=== PATIENT | male | born 1970 | race Caucasian/White ===

== ENCOUNTER → 2023-07-29 11:10 | Outpatient (BNVA) | payer OTHER, SELFPAY | PROVIDERS: Family Provider Family Medicine; PCP Family Medicine; Visit Provider Family Medicine | DX: I10 Essential (primary) hypertension (principal); E78.00 Pure hypercholesterolemia, unspecified; Z00.00 Encounter for general adult medical examination without abnormal findings | CPT/HCPCS: 80053; 80061; 85025 ==

== ENCOUNTER 2024-06-16 21:34 | Observation (INO) | payer OTHER, SELFPAY ==
--- NOTE | 2024-06-16 21:34 | ECG_ITS ---
[facility] Test Date: 2024-06-16 Pat Name: Baltazar Hahn Department: Room: Gender: Male Network Systems Integrator: : 1970 Requested By: Josselin Green Order Number: [id number] Shantel MD: Marquis Holley M.D. Measurements Intervals [place] Rate: 63 P: 0 [place]: 148 QRS: 6 QRSD: 86 T: 30 QT: 377 QTc: 389 Interpretive Statements SINUS RHYTHM No previous ECG available for comparison Electronically Signed On 06-16-2024 22:58:43 CDT by Marquis Holley M.D. [id number]
[2024-06-16 21:37] VITALS: BP 167/92; PULSE 63; RESP 16; TEMP 36.8; O2SAT 97; BMI 34.4
--- NOTE | 2024-06-16 21:51 | XRR_ITS ---
PROCEDURE INFORMATION: Exam: XR Chest Exam date and time: 06/16/2024 10:12 PM Age: 54 years old Clinical indication: Pain; Chest pressure; Additional info: Chest pain TECHNIQUE: Imaging protocol: Radiologic exam of the chest. Views: 1 view. COMPARISON: No relevant prior studies available. FINDINGS: Lungs: Reticular opacities in the left lower lung zone that might represent atelectasis versus infiltrates. No right lung consolidation. Pleural spaces: Unremarkable. No pleural effusion. No pneumothorax. Heart/Mediastinum: Unremarkable. No cardiomegaly. Vasculature: Unfolding of the thoracic aorta. Bones/joints: Moderate degenerative of the left acromioclavicular joint. Mild degenerative disease of the left glenohumeral joint. XR/XR chest 1V portable [id number] IMPRESSION: Reticular opacities in the left lower lung zone that might represent atelectasis versus infiltrates.
[2024-06-16 22:10] LABS: Basophils % 0.5 %; Eosinophils # 0.2 10^3/uL (0.0-0.8); Eosinophils % 2.3 %; Hematocrit 44.6 % (37-53); Lymphocytes # 2.9 10^3/uL (0.8-4.8); Lymphocytes % 33.8 %; Mean Corpuscular HGB Conc 33.6 g/dL (30-55); Mean Corpuscular Hemoglobin 31.3 pg (27-33); Mean Corpuscular Volume 93.1 fl (82-101); Mean Platelet Volume 8.5 fL (7.4-10.4); Monocytes # 1.1 10^3/uL (0.2-0.9); Monocytes % 12.6 %; Neutrophils # 4.37 10^3/uL (1.8-7.7); Neutrophils % 50.5 %; Nucleated Red Blood Cells % 0 %; Platelet Count 259 10^3/cmm (157-399); Red Blood Count 4.79 10^6/uL (3.85-5.65); Red Cell Distribution Width 12.1 % (12.1-15.1); White Blood Count 8.66 10^3/uL (3.29-11.43)
--- NOTE | 2024-06-16 22:19 | ED_ITS ---
HPI - Chest Pain 2 General: Chief Complaint: Chest Pain Stated Complaint: CP Time Seen by Provider: 06/16/24 21:37 History of Present Illness: 54-year-old male with history of hyperte nsion presents emergency room with chest pain. This started about 30 minutes ago. Left chest. Intermittent intensity. Pressure and ache. No known cardiac history. No cough. No diaphoresis. No nausea or vomiting. No abdominal pain. No altered mental status. No fevers. Related Data Previous Rx's Medication Instructions Recorded lisinopril 20 mg tablet 20 mg PO BID #180 tabs 07/29/23 Allergies Allergy/AdvReac Type Severity Reaction Status Date / Time No Known Allergies Allergy Verified 07/29/23 09:26 Review of Systems 2 Narrative: Constitutional symptoms: Negative except as documented in HPI. Skin symptoms: Negative except as documented in HPI. Eye symptoms: Negative except as documented in HPI. ENMT symptoms: Negative except as documented in HPI. Respiratory symptoms: Negative except as documented in HPI. Cardiovascular symptoms: Negative except as documented in HPI. Gastrointestinal symptoms: Negative except as documented in HPI. Genitourinary symptoms: Negative except as documented in HPI. Musculoskeletal symptoms: Negative except as documented in HPI. Neurologic symptoms: Negative except as documented in HPI. Psychiatric symptoms: Negative except as documented in HPI. Endocrine symptoms: Negative except as documented in HPI. PFSH ED 2 PFSH: Medical History (Updated 06/17/24 @ 01:02 by Josselin Galarza MD) Hypercholesterolemia Hypertension Social History Smoking and tobacco/nicotine status: never used tobacco/nicotine Alcohol intake: never Substance/Drug Use: never Physical Exam 2 Narrative: EXAM NARRATIVE: General: Alert, no acute distress. Skin: Warm, dry. Head: Normocephalic, atraumatic. Neck: Supple, trachea midline. Eye: Extraocular movements are intact. Ears, nose, mouth and throat: mucosa moist. Cardiovascular: Regular, Normal peripheral perfusion. Respiratory: Lungs are clear to auscultation, respirations are non-labored, breath sounds are equal, Symmetrical chest wall expansion. Gastrointestinal: Soft, Nontender, Non distended Musculoskeletal: Normal ROM, no deformity. Neurological: Alert and oriented, No focal neurological deficit observed. Psychiatric: Cooperative, appropriate mood & affect. Course 2 Vital Signs: Vital signs: Vital Signs Temperature 98.6 F 06/16/24 22:26 Pulse Rate 76 06/17/24 00:00 Respiratory Rate 16 06/17/24 00:00 Blood Pressure 110/70 06/17/24 00:00 Pulse Oximetry 98 06/17/24 00:00 Oxygen Delivery Me thod Room Air 06/16/24 23:43 MDM - Chest Pain Medical Decision Making Differential diagnosis for patient with chest pain includes but is not limited to and based on the above HPI, review of systems and physical exam: Pneumonia. unstable angina. angina. Acute coronary syndrome / MO. Pulmonary embolism. Costochondritis / musculoskeletal. Pleurisy. Pericarditis. Esophageal spasm. Pancreatis. Cholecystitis. Orders placed to evaluate differential diagnosis based on the above differential, HPI and physical exam EKG: Time 2133. Rate 63. Normal sinus rhythm, No ST-T changes, no ectopy, normal NV & QRS intervals, This was reviewed and interpreted by myself the ER physician at 2135 Chest x-ray: Some possible atelectasis versus infiltrate. No infiltrate. No pneumothorax. This was reviewed and interpreted by myself the ER physician. CT of the chest without contrast: This done because of abnormal chest x-ray. There is a mild effusion and some atelectasis. This was reviewed and interpreted by myself the emergency room physician. I also reviewed the radiology report. Lab Review: Laboratory results were reviewed and interpreted by myself the emergency room physician. No leukocytosis. No anemia. No renal failure. BUN and creatinine are 17 and 0.8. Serial cardiac markers are basically negative but has mildly increased. HEART Pathway for Early Discharge in Acute Chest Pain from [facility] on 06/17/2024 All calculations should be rechecked by clinician prior to use RESULT SUMMARY: 4 points HEART Pathway Score High risk 12-65% 30-day MACE Admit to hospital or observation. Further testing indicated. INPUTS: History ?> 2 = Highly suspicious EKG ?> 0 = Normal Age ?> 1 = 45-64 Risk factors ?> 1 = 1-2 risk factors Initial troponin ?> 0 = <=ormal limit I reviewed the patient's medical record. Reexamination: Patient remained stable. No increased work of breathing. No altered mental status. No focal motor deficits. Still with some mild chest pain. It did improve with nitroglycerin. Consultation: I spoke with Dr. Amanda who is on-call for the hospitalist. He agrees to admission to observation. Assessment and plan: Chest pain Hypertension ?Chest pain improved with nitro. Aspirin was also given. -I discussed the patient with the hospitalist on-call who is admitting the patient. - Discussed findings and plan with patient. Answered any questions. - All laboratory values were reviewed and interpreted personally by myself, the ER physician - All imaging was reviewed and interpreted personally by myself, the ER physician. - Evaluation and treatment of this problem were appropriate in the emergency setting Lab Data 06/16/24 21:59 06/16/24 21:59 Radiology Impressions Chest X-Ray 06/16/24 21:51 IMPRESSION: Reticular opacities in the left lower lung zone that might represent atelectasis versus infiltrates. Chest CT 06/16/24 23:46 IMPRESSION: Small left pleural effusion with bilateral lower lobe and lingular atelectasis. Laboratory Results WBC 8.66 10^3/uL (3.29-11.43) 06/16/24 21:59 RBC 4.79 10^6/uL (3.85-5.65) 06/16/24 21:59 Hgb 15.00 g/dL (11.27-16.99) 06/16/24 21:59 Hct 44.6 % (37-53) 06/16/24 21:59 MCV 93.1 fl (82-101) 06/16/24 21:59 MCH 31.3 pg (27-33) 06/16/24 21:59 MCHC 33.6 g/dL (30-55) 06/16/24 21:59 RDW 12.1 % (12.1-15.1) 06/16/24 21:59 Plt Count 259 10^3/cmm (157-399) 06/16/24 21:59 MPV 8.5 fL (7.4-10.4) 06/16/24 21:59 Neut % (Auto) 50.5 % 06/16/24 21:59 Lymph % (Auto) 33.8 % 06/16/24 21:59 [place] % (Auto) 12.6 % 06/16/24 21:59 Eos % (Auto) 2.3 % 06/16/24 21:59 Baso % (Auto) 0.5 % 06/16/24 21:59 Neut # (Auto) 4.37 10^3/uL (1.8-7.7) 06/16/24 21:59 Lymph # (Auto) 2.9 10^3/uL (0.8-4.8) 06/16/24 21:59 [place] # (Auto) 1.1 10^3/uL (0.2-0.9) H 06/16/24 21:59 Eos # (Auto) 0.2 10^3/uL (0.0-0.8) 06/16/24 21:59 Baso # (Auto) 0.0 10^3/uL (0.0-0.1) 06/16/24 21:59 Nucleated RBC % (auto) 0 % 06/16/24 21:59 Nucleated RBCs # 0.0 /100WBC 06/16/24 21:59 Sodium 137 mmol/L (136-145) 06/16/24 21:59 Potassium 4.2 mmol/L (3.5-5.1) 06/16/24 21:59 Chloride 100 mmol/L (98-107) 06/16/24 21:59 Carbon Dioxide 24 mmol/L (22-29) 06/16/24 21:59 Anion Gap 17.2 (5-19) 06/16/24 21:59 BUN 17 mg/dL (6-20) 06/16/24 21:59 Creatinine 0.8 mg/dL (0.7-1.2) 06/16/24 21:59 GFR Calculation 100.0 mL/min (90-130) 06/16/24 21:59 Glucose 93 mg/dL (65-115) 06/16/24 21:59 Calculated Osmolality 285 mOsm/kg (285-295) 06/16/24 21:59 Calcium 9.2 mg/dL (8.5-10.5) 06/16/24 21:59 Total Bilirubin 0.4 mg/dL (0.15-1.2) 06/16/24 21:59 AST 17 U/L (0-40) 06/16/24 21:59 ALT 15 U/L (0-41) 06/16/24 21:59 Alkaline Phosphatase 98 U/L (40-130) 06/16/24 21:59 Troponin T Baseline 10 ng/L (0-15) 06/16/24 21:59 Troponin T 120 Minute 12.47 ng/L (0-15) 06/17/24 00:07 Delta Troponin T 2.47 ABS# (0-10) 06/17/24 00:07 Total Protein 7.5 g/dL (6.6-8.7) 06/16/24 21:59 Albumin 4.7 g/dL (3.5-5.2) 06/16/24 21:59 Globulin 2.8 g/dL (1.3-4.6) 06/16/24 21:59 All radiology interpretation(s) finalized by discharge Discharge Plan Discharge Patient Disposition: Placed in Observation Clinical Impression: Chest pain Hypertension Qualifiers: Hypertension type: essential hypertension Qualified Code(s): I10 - Essential (primary) hypertension Coding Level of Care Code ED Bunch Breaker for Ira Duenas
[2024-06-16 22:26] VITALS: PULSE 78; RESP 16; TEMP 37; O2SAT 98
[2024-06-16 22:28] LABS: Troponin(5th) Baseline 10 ng/L (0-15)
[2024-06-16 22:29] LABS: Alanine Aminotransferase 15 U/L (0-41); Albumin Level 4.7 g/dL (3.5-5.2); Alkaline Phosphatase 98 U/L (40-130); Anion Gap 17.2 (5-19); Aspartate Amino Transferase 17 U/L (0-40); Blood Urea Nitrogen 17 mg/dL (6-20); Calcium 9.2 mg/dL (8.5-10.5); Carbon Dioxide 24 mmol/L (22-29); Chloride 100 mmol/L (98-107); Creatinine Clr Calc Pharmacy 142.8368; Globulin 2.8 g/dL (1.3-4.6); Glucose 93 mg/dL (65-115); Osmolality Calculated 285 mOsm/kg (285-295); Potassium 4.2 mmol/L (3.5-5.1); Sodium 137 mmol/L (136-145); Total Bilirubin 0.4 mg/dL (0.15-1.2); Total Protein 7.5 g/dL (6.6-8.7)
[2024-06-16] MEDS: aspirin 81 mg Chew Tablet 324 MG PO (22:56)
[2024-06-16] MEDS: nitroglycerin 0.4 mg sublingual Tablet SUBLINGUAL ×3 (22:57→23:30)
[2024-06-16 22:59] VITALS: BP 149/91; PULSE 79; RESP 17; O2SAT 96
[2024-06-16 23:43] VITALS: BP 126/72; PULSE 66; RESP 16; O2SAT 95
[2024-06-16 23:45] VITALS: BP 134/78; PULSE 69
--- NOTE | 2024-06-16 23:46 | CTR_ITS ---
PROCEDURE INFORMATION: Exam: CT Chest Without Contrast; Diagnostic Exam date and time: 06/16/2024 11:51 PM Age: 54 years old Clinical indication: Pain; Chest pressure; Additional info: Abnormal chest xray TECHNIQUE: Imaging protocol: Diagnostic computed tomography of the chest without contrast. Radiation optimization: All CT scans at this facility use at least one of these dose optimization techniques: automated exposure control; mA and/or kV adjustment per patient size (includes targeted exams where dose is matched to clinical indication); or iterative reconstruction. COMPARISON: CR XR chest 1V portable [id number] 06/16/2024 10:12 PM RADIATION DOSE METRICS: Total DLP (mGy-cm): 716.41 FINDINGS: Lungs: Atelectatic changes in bilateral lower lobes and lingula. No focal consolidation. Pleural spaces: Small left pleural effusion. No right pleural effusion. Heart: Unremarkable. No cardiomegaly. No pericardial effusion. Coronary arteries: Mild coronary calcifications. Lymph nodes: Calcified left hilar lymph nodes. Vasculature: Aortic calcifications. Bones/joints: Unremarkable. No acute fracture. Soft tissues: Unremarkable. CT/CT chest con [id number] IMPRESSION: Small left pleural effusion with bilateral lower lobe and lingular atelectasis.
--- NOTE | 2024-06-16 23:51 | ECG_ITS ---
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 Measurements Intervals [place] Rate: 63 P: 8 [place]: 149 QRS: -1 QRSD: 86 T: 29 QT: 407 QTc: 418 Interpretive Statements SINUS RHYTHM WITH OCCASIONAL VENTRICULAR PREMATURE COMPLEXES Compared to ECG 06/16/2024 21:34:56 Ventricular premature complex(es) now present Electronically Signed On 06-17-2024 16:38:42 CDT by Antwon Jovel M.D. [id number]
[2024-06-17] VITALS (27 sets, daily range): BP systolic 110–164; BP diastolic 64–93; PULSE 60–106; RESP 15–21; TEMP 36.6–36.7; O2SAT 93–100; BMI 34.4
--- NOTE | 2024-06-17 | ECG_ITS ---
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 Interpretive Statements Lung unchanged pre/post procedure; Intraprocedure shortess of breath; Symptoms resoled by discharge Electronically Signed On 06-20-2024 20:50:43 CDT by Marquis Holley M.D. [id number]
[2024-06-17 00:37] LABS: Troponin 5 2HR 12.47 ng/L (0-15); Troponin 5 2HR Delta 2.47 ABS# (0-10)
--- NOTE | 2024-06-17 01:36 | P.HP_ITS ---
Providers/Chief Complaint 2 Primary Care Provider: Miguel Santos MD Chief Complaint: CP History of Present Illness Pleasant 54-year-old gentleman with history of HTN, HLD, overweight, came to ER for evaluation due to left-sided chest pain starting and lasting about 30 minutes prior to presentation with relief from nitroglycerin but still mild dull ache residual. 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 Current episode was on the left side of the chest, severe, sharp, without radiation. Made it difficult for him to take deep breaths, although not specifically triggered by breathing. Not triggered by palpation or movement. He has not had any cough or shortness of breath otherwise. No exertional dyspnea. No orthopnea or lower extremity edema. Review of Systems 2 Const: Denies: fever(s), chills, body aches or malaise ENMT: Denies: throat pain Card: Reports: chest pain; Denies: edema, pre-syncope or dyspnea on exertion Resp: Denies: dyspnea, productive cough, change in phlegm color or hemoptysis GI: Denies: abdominal pain, nausea, vomiting, diarrhea, constipation, hematochezia or melena : Denies: flank pain, difficulty urinating, urinary frequency or hematuria Musc: Denies: back pain, joint swelling or joint redness Skin/Breast: Denies: rash or new lesions Neuro: Denies: headache(s) or confusion Medications/Allergies Home Medications Medication Instructions Recorded Confirmed Last Taken Type lisinopril 20 mg tablet 20 mg PO BID #180 tabs 07/29/23 07/29/23 Unknown Rx Allergies Allergy/AdvReac Type Severity Reaction Status Date / Time No Known Allergies Allergy Verified 07/29/23 09:26 PFSH Acute 2 PFSH: Medical History (Updated 06/17/24 @ 01:46 by Linwood Amanda MD) History of umbilical hernia Hypercholesterolemia Hypertension Surgical History (Updated 06/17/24 @ 01:46 by Linwood Amanda MD) History of sinus surgery Social History Smoking and tobacco/nicotine status: never used tobacco/nicotine Alcohol intake: never Substance/Drug Use: never Vitals/I&O/Wt Last Vital Signs Temp 98.6 F 06/16/24 22:26 Pulse 76 06/17/24 00:00 Resp 16 06/17/24 00:00 BP 110/70 06/17/24 00:00 Pulse Ox 98 06/17/24 00:00 O2 Del Method Room Air 06/16/24 23:43 Weight last 48 hrs Weight 121.563 kg Physical Exam 2 Const: COMMON NORMALS: patient oriented x3 and alert GENERAL APPEARANCE: c ooperative ORIENTATION/CONSCIOUSNESS: Yes awake HENMT: COMMON NORMALS: oropharynx normal Neck/C-Spine: COMMON NORMALS: no JVD Chest: OTHER: No reproducible pain on palpation Resp: COMMON NORMALS: normal respiratory effort and clear to auscultation bilaterally AUSCULTATION: clear to auscultation bilaterally Cardio: COMMON NORMALS: no JVD, regular rhythm, S1 normal heart sound present, S2 normal heart sound present and No murmurs present (Cardio) RHYTHM: regular rhythm HEART SOUNDS: S1 normal heart sound present and S2 normal heart sound present GI: COMMON NORMALS: Normal to inspection, nondistended, normoactive bowel sounds present, Soft to palpation and non-tender PALPATION: Yes Soft to palpation Extremity: COMMON NORMALS: no joint enlargement and no pedal edema Neuro: COMMON NORMALS: patient oriented x3 and moves all extremities S ENSORIUM/ORIENTATION: Yes alert Skin: COMMON NORMALS: no rashes or lesions noted GENERAL SKIN EXAM: no rashes or lesions noted Data 06/16/24 21:59 06/16/24 21:59 A&P Assessment and plan (1) Chest pain: Chest pain lasting about 30 minutes, sharp, left-sided, relieved by nitroglycerin, but still dull ache remaining. No cough. No lower extremity edema. No orthopnea. He is generally active, but does have BMI of 34.4 with some overweight, history of HTN, HLD. Reviewed vitals, CBC, CMP, baseline and 2-hour troponin, EKG, on my interpretation sinus rhythm without acute signs of ischemia, pending official read. Reviewed ER note, discussed with ER provider. Heart score appears to be 4. Observation requested for additional assessment. Complete troponin EKG series. Assess for possible unstable angina. Obtain TTE. Monitor on telemetry. Also requesting D-dimer. Reviewed chest x-ray, chest CT. Small left pleural effusion with bilateral lower lobe and lingular atelectasis. Nitroglycerin as needed for any recurrent pain. He is to let us know in case of recurrence. Otherwise tentatively discussed with him assessment with stress testing in the morning. Aspirin for now. Would benefit from statin. Optimization of blood pressure control. Weight loss. Follow-up to continue long-term risk factor modification after discharge. (2) Hypertension: Continue lisinopril. Cardiac diet after resumed. Encouraged to monitor blood pressures. Encourage lifestyle modification, heart healthy diet, weight loss. Qualifiers: Hypertension type: essential hypertension Qualified Code(s): I10 - Essential (primary) hypertension Plan Atelectasis, small left pleural effusion: Possible small localized lung contusion? After he reports sustaining a head during a game over a week ago. Add incentive spirometer. Will need follow-up to assess for resolution. HLD: Would benefit from statin per discussion with him. Encourage lifestyle modification. Weight loss. Attestations 2 Medical Necessity Statement*: Place in observation for additional assessment and management of chest pain, assess for unstable angina in a gentleman with coronary disease risk factors. and High MDM includes amount and/or complexity of data reviewed/ordered [ previous or external records, resulted lab(s)/test(s), ordered lab(s)/test(s), independent test interpretation and other healthcare professional discussion] as documented Diagnoses Chest pain R07.9 Essential hypertension I10 Hypertension type: essential hypertension
[2024-06-17 02:26] LABS: D Dimer 0.94 ug/mLFEU (0-0.59)
--- NOTE | 2024-06-17 02:27 | NMCV_ITS ---
NM jeevan perf SPECT r/s* [id number] Baltazar Hahn Age: 54 Gender: M : 1970 Exam Date: 06/17/2024 09:25 Ordering Phys: Linwood Amanda MD Technologist: TA Lu Exam Location: [facility] Indications: CP STRESS TEST Please see separate stress test report in [employer] for full findings IMAGE PROTOCOL Rest/Stress 1 Exercise Day Radiopharmaceutical Dose (mCi) Administration Site Administered by Rest: Tc-99m 10.8 IV TA Lu Sestamibi Stress:Tc-99m 33.0 IV TA Guzman Sestamibi Rest: 17-Jun-2024 60 Discovery 630 Stress: 17-Jun-2024 30 Discovery 630 Radiopharmaceutical was injected at 90 % maximum heart rate. Images obtained in supine and prone position. SPECT RESULTS Technical Quality: Good Raw Data Analysis: Normal Image Corrections: No attenuation or motion correction applied Summed Stress Score: 6 Summed Rest Score: 9 Summed Difference Score: 0 PERFUSION FINDINGS Moderate area of moderately decreased tracer uptake involving the basal and mid inferolateral, apical lateral and mid inferior wall regions. No significant reversibility was noted in these regions. FUNCTIONAL RESULTS (calculated via Gated SPECT) Stress Image LV EF (%): 78 Stress EDV (mL):100 TID: 0.78 Stress ESV (mL):22 FUNCTIONAL FINDINGS: Segmental wall motion analysis revealing no gross wall motion abnormalities IMPRESSIONS 1. Myocardial perfusion imaging revealing moderate area of minimal to moderately decreased persistent tracer uptake involving the inferolateral, inferior and apical lateral regions suggestive of myocardial scarring versus attenuation artifact 2. Normal LV ejection fraction of 78%. 3. LV wall motion analysis revealing no gross wall motion abnormalities. 4. Normal LV volume Low probability for coronary ischemia, based on the above findings No similar previous studies are available for comparison Dr Marquis Holley MD [facility] (Electronically Signed) Final Date: 17 June 2024 13:10 S
--- NOTE | 2024-06-17 02:27 | USCV_ITS ---
Baltazar Hahn Age: 54 Gender: M : 1970 Exam Date: 06/17/2024 08:27 Ordering Phys: Linwood Amadna MD Technologist: Exam Location: [facility] Indication: cp BP: 151 / 90 HR: 64 Rhythm: Sinus Technical Quality: MEASUREMENTS (Male / Female) Normal Values 2D ECHO LV Diastolic Diameter PLAX 4.1 cm 4.2 - 5.9 / 3.9 - 5.3 cm IVS Diastolic Thickness 1.3 cm 0.6 - 1.0 / 0.6 - 0.9 cm IVS Systolic Thickness 1.9 cm LVPW Diastolic Thickness 1.2 cm 0.6 - 1.0 / 0.6 - 0.9 cm LVPW Systolic Thickness 1.7 cm LVOT Diameter 2.0 cm LV Ejection Fraction 2D Teich 65.2 % LV Ejection Fraction MOD 4C 72.2 % LV Ejection Fraction MOD 2C 66.7 % LV Ejection Fraction 2C AL 65.6 % LA Diameter 3.6 cm RA Systolic Volume 4C AL 37.9 ml RA Systolic Volume 4C MOD 37.2 ml LA Sys Volume AL 54.4 cm cubed LA Sys Volume Index AL 23.0 cm cubed/m squared Aorta at Sinotubular Diameter 3.0 cm DOPPLER AV Peak Velocity 131.0 cm/s LVOT Peak Velocity 104.0 cm/s AV Area Cont Eq vti 3.5 cm squared AV Area Cont Eq pk 2.6 cm squared MV Area PHT 4.0 cm squared Mitral E to A Ratio 1.3 TV Peak Velocity 151.0 cm/s TR Peak Velocity 225.0 cm/s TR Peak Gradient 20.3 mmHg TV Peak E Velocity 60.0 cm/s Right Atrial Pressure 3.0 mmHg Pulmonary Artery Systolic Pressu 23.3 mmHg PV Peak Velocity 130.0 cm/s FINDINGS Left Ventricle Normal left ventricular size and systolic function, EF 67%.no regional wall motion abnormalities. Mild left ventricular hypertrophy. Right Ventricle The right ventricle is normal in size and function. Right Atrium The right atrium is normal in size. Left Atrium The left atrium is normal in size. Mitral Valve Thickened mitral valve. Aortic Valve Thickened aortic valve. Tricuspid Valve No gross abnormalities Pulmonic Valve Pulmonic valve not well visualized. Pericardium Normal pericardium without effusion. Aorta Normal ascending aorta dimension. IVC The inferior vena cava appears normal. CONCLUSIONS Normal left ventricular size and systolic function, EF 67%.no regional wall motion abnormalities. Thickened mitral valve. Thickened aortic valve. Mild left ventricular hypertrophy. Normal cardiac chamber sizes. There is no pericardial effusion. There are no intracardiac masses. No similar previous studies are available for comparison Dr Marquis Holley MD [facility] (Electronically Signed) Final Date: 17 June 2024 16:22 S
--- NOTE | 2024-06-17 03:51 | ECG_ITS ---
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 Measurements Intervals [place] Rate: 67 P: 10 NE: 151 QRS: -56 QRSD: 94 T: 19 QT: 406 QTc: 431 Interpretive Statements SINUS RHYTHM LEFT AXIS DEVIATION [QRS AXIS < -30] LOW QRS VOLTAGE IN PRECORDIAL LEADS [QRS DEFLECTION < 1.0 mV IN CHEST LEADS] Compared to ECG 06/17/2024 00:08:43 Left-axis deviation now present Low QRS voltage now present Ventricular premature complex(es) no longer present Electronically Signed On 06-17-2024 16:38:29 CDT by Antwon Jovel M.D. [id number]
--- NOTE | 2024-06-17 04:02 | CTR_ITS ---
PROCEDURE INFORMATION: Exam: CTA Chest With Contrast Exam date and time: 06/17/2024 4:27 AM Age: 54 years old Clinical indication: Shortness of breath and other: Elevated ddimer; Additional info: Assess for pe TECHNIQUE: Imaging protocol: Computed tomographic angiography of the chest with contrast. Exam focused on the arteries. 3D rendering (Not supervised by radiologist): MIP and/or 3D reconstructed images were created by the technologist. Radiation optimization: All CT scans at this facility use at least one of these dose optimization techniques: automated exposure control; mA and/or kV adjustment per patient size (includes targeted exams where dose is matched to clinical indication); or iterative reconstruction. Contrast material: OMNI 350; Contrast volume: 100 ml; Contrast route: INTRAVENOUS (IV); COMPARISON: CT chest wo con [id number] 06/16/2024 11:51 PM RADIATION DOSE METRICS: Total DLP (mGy-cm): 524.13 FINDINGS: Pulmonary arteries: Mixing artifact within the basilar subsegmental pulmonary arteries, no filling defect suggestive of pulmonary embolus. Aorta: Small focus of calcified atherosclerotic disease of the aortic arch. Lungs: Basilar scarring/atelectasis. Right lower lobe granuloma. Pleural spaces: Small left pleural effusion. Heart: Unremarkable. No cardiomegaly. No pericardial effusion. Coronary arteries: Mild coronary calcified atherosclerotic disease. Lymph nodes: Unremarkable. No enlarged lymph nodes. Bones/joints: Unremarkable. No acute fracture. Soft tissues: Unremarkable. CT/CT angio chest PE protcl [id number] IMPRESSION: 1. No pulmonary embolus. 2. Small left pleural effusion with associated atelectasis/scarring.
[2024-06-17] MEDS: iohexol 350 mg/mL 500 mL Btl (per mL) IV (04:36)
[2024-06-17 07:46] LABS: Covid PCR NEGATIVE (Negative); Influenza A NEGATIVE (Negative); Influenza B NEGATIVE (Negative); Respiratory Syncytial Virus Ce NEGATIVE (Negative)
[2024-06-17] MEDS: aspirin 325 mg Tablet PO (09:11)
[2024-06-17] MEDS: lisinopril 20 mg Tablet PO (09:11)
--- NOTE | 2024-06-17 09:57 | PC.NURSE ---
Patient left unit to stress test at 0938.
--- NOTE | 2024-06-17 11:34 | PC.NURSE ---
Patient returned from stress test at 1101.
--- NOTE | 2024-06-17 16:34 | P.DS_ITS ---
Discharge Providers Date of Admission: 06/17/24 01:32 Date of Discharge: June 17, 2024 Attending Provider at Admission: Linwood Amanda Attending Provider at Discharge: Hilario Manrique MD Primary Care Provider: Miguel Santos MD Diagnoses at Discharge Discharge Diagnosis (1) Chest pain: Status: Acute (2) Hypertension: Status: Acute Qualifiers: Hypertension type: essential hypertension Qualified Code(s): I10 - Essential (primary) hypertension Reason for Visit Reason for Visit: CP Hospital Course Hospital Course Baltazar Hahn is a very pleasant 54-year-old male with a past medical history significant for hypertension who presented with chest pain relieved with n itroglycerin concerning for unstable angina. He was admitted observation for further workup. Troponins were trended and negative. He underwent cardiac stress testing which was negative for evidence of a reversible ischemia. Transthoracic echocardiogram was negative for acute findings. Symptoms significantly improved. Patient discharged home in stable condition. Follow-up with his primary provider within 1 to 2 weeks for ongoing care. Physical Exam Narrative: General: Patient is awake and alert. Head: Normocephalic. Atraumatic. EOM intact. Neck: No JVD. Cardiovascular: RRR. No gallops. No murmurs. No peripheral edema. Lungs: Clear to auscultation, no use of accessory muscles, no crackles or wheezes. Skin: No jaundice. No rashes. Abdomen: Normal bowel sounds, abdomen soft and nontender. Genito Urinary: Genital exam not performed since complaints not related. Rectal: Rectal exam not performed since no symptoms indicated blood loss. Extremities: No cyanosis or clubbing. Musculoskeletal: 5/5 strength, normal range of motion, no swollen or erythematous joints. Neurological: Moves all 4 extremities. No myoclonus. Discharge Data Studies Completed and Pending Completed Studies During Hospitalization Category Date Time Status CT chest wo con [id number] Stat Cat Scan 06/16/24 23:46 Completed CTA chest [CT angio chest PE protcl [id number]] Routine Cat Scan 06/17/24 04:02 Completed Cardiac Stress Test MIBI [Sestamibi Stress Test Request Exams 06/17/24 02:27 Draft ] Routine XR chest 1V portable [id number] Stat Exams 06/16/24 21:51 Completed NM jeevan perf SPECT r/s* [id number] Routine Nuc Med 06/17/24 02:27 Completed CV. echo complete* [id number] Routine Ultrasound 06/17/24 02:27 Completed Pending at discharge Category Date Time Status Basic Metabolic Panel AM LABS Lab 06/18/24 04:00 Ordered Complete Blood Count w/Auto AM LABS Lab 06/18/24 04:00 Ordered Radiology Impressions Chest X-Ray 06/16/24 21:51 IMPRESSION: Reticular opacities in the left lower lung zone that might represent atelectasis versus infiltrates. Chest CT 06/16/24 23:46 IMPRESSION: Small left pleural effusion with bilateral lower lobe and lingular atelectasis. Chest CTA 06/17/24 04:02 IMPRESSION: 1. No pulmonary embolus. 2. Small left pleural effusion with associated atelectasis/scarring. Laboratory Results WBC 8.66 10^3/uL (3.29-11.43) 06/16/24 21:59 RBC 4.79 10^6/uL (3.85-5.65) 06/16/24 21:59 Hgb 15.00 g/dL (11.27-16.99) 06/16/24 21:59 Hct 44.6 % (37-53) 06/16/24 21:59 MCV 93.1 fl (82-101) 06/16/24 21:59 MCH 31.3 pg (27-33) 06/16/24 21:59 MCHC 33.6 g/dL (30-55) 06/16/24 21:59 RDW 12.1 % (12.1-15.1) 06/16/24 21:59 Plt Count 259 10^3/cmm (157-399) 06/16/24 21:59 MPV 8.5 fL (7.4-10.4) 06/16/24 21:59 Neut % (Auto) 50.5 % 06/16/24 21:59 Lymph % (Auto) 33.8 % 06/16/24 21:59 [place] % (Auto) 12.6 % 06/16/24 21:59 Eos % (Auto) 2.3 % 06/16/24 21:59 Baso % (Auto) 0.5 % 06/16/24 21:59 Neut # (Auto) 4.37 10^3/uL (1.8-7.7) 06/16/24 21:59 Lymph # (Auto) 2.9 10^3/uL (0.8-4.8) 06/16/24 21:59 [place] # (Auto) 1.1 10^3/uL (0.2-0.9) H 06/16/24 21:59 Eos # (Auto) 0.2 10^3/uL (0.0-0.8) 06/16/24 21:59 Baso # (Auto) 0.0 10^3/uL (0.0-0.1) 06/16/24 21:59 Nucleated RBC % (auto) 0 % 06/16/24 21:59 Nucleated RBCs # 0.0 /100WBC 06/16/24 21:59 D-Dimer 0.94 ug/mLFEU (0-0.59) H 06/16/24 21:59 Sodium 137 mmol/L (136-145) 06/16/24 21:59 Potassium 4.2 mmol/L (3.5-5.1) 06/16/24 21:59 Chloride 100 mmol/L (98-107) 06/16/24 21:59 Carbon Dioxide 24 mmol/L (22-29) 06/16/24 21:59 Anion Gap 17.2 (5-19) 06/16/24 21:59 BUN 17 mg/dL (6-20) 06/16/24 21:59 Creatinine 0.8 mg/dL (0.7-1.2) 06/16/24 21:59 GFR Calculation 100.0 mL/min (90-130) 06/16/24 21:59 Glucose 93 mg/dL (65-115) 06/16/24 21:59 Calculated Osmolality 285 mOsm/kg (285-295) 06/16/24 21:59 Calcium 9.2 mg/dL (8.5-10.5) 06/16/24 21:59 Total Bilirubin 0.4 mg/dL (0.15-1.2) 06/16/24 21:59 AST 17 U/L (0-40) 06/16/24 21:59 ALT 15 U/L (0-41) 06/16/24 21:59 Alkaline Phosphatase 98 U/L (40-130) 06/16/24 21:59 Troponin T Baseline 10 ng/L (0-15) 06/16/24 21:59 Troponin T 120 Minute 12.47 ng/L (0-15) 06/17/24 00:07 Delta Troponin T 2.47 ABS# (0-10) 06/17/24 00:07 Troponin T Hi Sens 6Hr 8.30 ng/L (0-15) 06/17/24 04:17 Troponin T Hi Sens 6Hr Delta -1.70 ng/L (0-12) L 06/17/24 04:17 Total Protein 7.5 g/dL (6.6-8.7) 06/16/24 21:59 Albumin 4.7 g/dL (3.5-5.2) 06/16/24 21:59 Globulin 2.8 g/dL (1.3-4.6) 06/16/24 21:59 Coronavirus (PCR) Negative (Negative) 06/17/24 06:40 Influenza A (PCR) Negative (Negative) 06/17/24 06:40 Influenza Type B (PCR) Negative (Negative) 06/17/24 06:40 RSV (PCR) Negative (Negative) 06/17/24 06:40 Vitals Last Vital Signs Temp 97.8 F 06/17/24 16:00 Pulse 70 06/17/24 16:00 Resp 18 06/17/24 16:00 BP 154/93 06/17/24 16:00 Pulse Ox 95 06/17/24 16:00 O2 Del Method Room Air 06/17/24 16:00 Discharge Plan Discharge Patient Disposition: Home Condition: Stable Prescriptions: Continued lisinopril 20 mg tablet 20 mg PO BID Qty: 180 3RF Discharge Orders: Discharge Order (Routine); Ordered 06/17/24 Ordered By: Hilario Manrique Referrals: Miguel Santos MD [Primary Care Provider] - 2 weeks (FOLLOW UP WITH DR. SANTOS ON June AT 11AM) Discharge Diet: Advance as tolerated and Low Salt Discharge Activity: Resume usual activity and Increase activity as tolerated Patient Instructions: Lisinopril (By mouth), Aspirin (By mouth), Heart Healthy Diet, Chest Pain (GEN), Hypertension (GEN), Hypertension in the Older Adult (GEN), Opioid Safety Activity Restrictions/Additional Instructions: 1. Take medications as prescribed. 2. Follow-up with PCP within 1 week. Discharge Attestations Time Spent in Discharge Care*: greater than 30 min Quality Metrics Clinical Quality Measures [ No reported AMI, CVA or VTE this stay] Coding Level of Care Code Acute Code for Chg Fwd Diagnoses Chest pain R07.9 Essential hypertension I10 Hypertension type: essential hypertension
== END 2024-06-17 16:49 | disposition home or self-care (01) ==
LOC: ER 06-17 01:02 → CSU 06-17 01:37
PROVIDERS: Admitting Provider Internal Medicine; Emergency Provider Emergency Medicine; PCP Family Medicine; Visit Provider Internal Medicine
DX: R07.9 Chest pain, unspecified (principal); E66.3 Overweight; Z79.899 Other long term (current) drug therapy; I10 Essential (primary) hypertension; E78.5 Hyperlipidemia, unspecified; J98.11 Atelectasis; J90 Pleural effusion, not elsewhere classified
CPT/HCPCS: 0241U; 36415; 71045; 71250; 71275; 78452; 80053; 84484; 85025; 85378; 93005; 93017; 93306; 99285; A9500; G0378

== ENCOUNTER 2024-07-22 13:03 | Outpatient (CLI) | payer OTHER, SELFPAY ==
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
== END 2024-07-22 13:04 | disposition home or self-care (01) ==
LOC: RAD 13:04
PROVIDERS: PCP Family Medicine; Visit Provider Family Medicine
DX: J90 Pleural effusion, not elsewhere classified (principal)
CPT/HCPCS: 71046

== ENCOUNTER 2025-04-03 07:34 | Emergency (ER) | payer OTHER, SELFPAY ==
--- NOTE | 2025-04-03 07:39 | XRR_ITS ---
PROCEDURE INFORMATION: Exam: XR Left Shoulder Exam date and time: 04/03/2025 8:00 AM Age: 55 years old Clinical indication: Injury or trauma; Fall; Blunt trauma (contusions or hematomas); Shoulder; Left TECHNIQUE: Imaging protocol: Radiologic exam of the left shoulder. Views: 2 or more views. COMPARISON: CR XR chest 2V* [id number] 07/22/2024 1:15 PM FINDINGS: Bones/joints: Fracture of left distal clavicle. There is no shoulder joint dislocation. Soft tissues: Normal. XR/XR shoulder LT min 2V* [id number] IMPRESSION: Fracture of left distal clavicle.
--- OUTSIDE RECORDS SUMMARY | 2025-04-03 07:41 | XMS_ITS | Encounter Summary ---
Author Organization [facility] Address [address] [place] [address] Care Team Providers Care It Data Architect Name Role Phone Unavailable Primary Care Provider Unavailabl e Encounter Details Date Type Department Care Team (Late st Contact Info) Description 07/23/2019 Lab Requisition [facility] [address] [place] [address] Monty Pate DO [address] [address] Social History Tobacco Use Types Packs/Day Years Used Date Smoking Tobacco: Never Assessed Sex and Gender Information Value Date Recorded Sex Assigned at Not on file Legal Sex Male 11:33 AM CDT Gender Identity Not on file Sexual Orientation Not on file documented as of this encounter Plan of Treatment Not on file documented as of this encounter Procedures Procedure Name Priority Date/Time Associated Diagnosis Comments HEMOGLOBIN A1C Routine 07/23/2019 10:24 AM CDT LIPID PANEL Routine 07/23/2019 10:24 AM CDT documented in this encounter Results * (ABNORMAL) LIPID PANEL (07/23/2019 10:24 AM CDT) CHOLESTEROL 203(H) <200 mg/dL 07/23/2019 4:47 PM CDT [facility] TRIGLYCERIDE 97 <150 mg/dL 07/23/2019 4:47 PM CDT [facility] HDL 49 40 - 59 mg/dL 07/23/2019 4:47 PM CDT [facility] LDL CALCULATED 135(H) <100 mg/dL 07/23/2019 4:47 PM CDT [facility] NON-HDL CHOLESTEROL 154(H) <130 mg/dL 07/23/2019 4:47 PM CDT [facility] Blood Collection / Unknown 07/23/2019 10:24 AM CDT 07/23/2019 4:31 PM CDT [facility] - 07/23/2019 4:47 PM CDT TOTAL CHOLESTEROL mg/dL Desirable <200 Borderline high 200-239 High >=240 TRIGLYCERIDES mg/dL Normal <150 Borderline high 150-199 High 200-499 Very high >=500 HDL CHOLESTEROL mg/dL Low <40 Normal 40-59 Desirable >=60 NON HDL CHOLESTEROL mg/dL Optimal <130 Near Optimal 130-159 Borderline High 160-189 Very High >=190 Calculated LDL mg/dL Optimal <100 Near Optimal 100-129 Borderline High 130-159 High 160-189 Very High >=190 ATPIII Guidelines Reference Ranges for Lipid Panels (NCEP/AMA) us Monty Pate DO CHEMISTRY ORDERABLES Final R esult Performing Organization Address [facility] Co de Phone Number [facility] CLIA# [id number] [address] [place] [phone] * HEMOGLOBIN A1C (07/23/2019 10:24 AM CDT) HEMOGLOBIN A1C 5.5 <=5.6 % 07/26/2019 7:15 AM BASE CLOTH INSPECTOR [facility] EST. AVG GLUCOSE, A1C 111 mg/dL 07/26/2019 7:15 AM BASE CLOTH INSPECTOR [facility] Blood Collection / Unknown 07/23/2019 10:24 AM CDT 07/23/2019 4:44 PM CDT [facility] - 07/26/2019 7:15 AM BASE CLOTH INSPECTOR HGB A1C INTERPRETATION NORMAL: <5.7% PRE-DIABETES: 5.7 - 6.4% DIABETES: 6.5% OR GREATER us Monty Pate DO CHEMISTRY ORDERABLES Final R esult Performing Organization Address City/[facility]/ZIP Co de Phone Number [facility] CLIA# [id number] [address] [place] [address] documented in this encounter Visit Diagnoses Not on filedocumented in this encounter
--- OUTSIDE RECORDS SUMMARY | 2025-04-03 07:41 | XMS_ITS | Clinical Summary ---
Author Organization [facility] Address [address] [place]: Epic [place] [address] Care Team Providers Care Prosthodontist/Educator Name Role Phone Unavailable Primary Care Provider Unavailabl e Social History Tobacco Use Types Packs/Day Years Used Date Smoking Tobacco: Never Assessed Sex and Gender Information Value Date Recorded Sex Assigned at Not on file Legal Sex Male 11:33 AM CDT Gender Identity Not on file Sexual Orientation Not on file Plan of Treatment Health Maintenance Due Date Last Done Comments DTAP/TDAP/TD VACCINES (1 - Tdap) 1987 HEPATITIS B VACCINES (1 of 3 - 19+ 3-dose series) 03/22 COLORECTAL SCREENING 2013 Colorectal Cancer Screening 2013 FIT-DNA Q 3 years 2013 FIT/FOBT Q 1 year 2013 Flex Sig/CT Colonography Q 5 years 2013 ZOSTER VACCINE (1 of 2) 2018 INFLUENZA VACCINE (#1) 2025
[2025-04-03 07:45] VITALS: BMI 34.7
[2025-04-03 07:52] VITALS: BP 135/83; PULSE 67; RESP 16; TEMP 36.5; O2SAT 97
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
[2025-04-03] MEDS: HYDROcodone-acetaminophen 5-325 mg Tablet 1 TAB PO (08:06)
[2025-04-03 08:36] VITALS: BP 132/70; PULSE 77; RESP 16; O2SAT 97
--- NOTE | 2025-04-04 07:44 | DCPLANNER ---
messaged ortho for er f/u
== END 2025-04-03 08:44 | disposition home or self-care (01) ==
PROVIDERS: Emergency Provider Emergency Medicine; PCP Family Medicine
DX: S42.032A Displaced fracture of lateral end of left clavicle, initial encounter for closed fracture (principal); V19.9XXA Pedal cyclist (driver) (passenger) injured in unspecified traffic accident, initial encounter; I10 Essential (primary) hypertension; Z79.899 Other long term (current) drug therapy
CPT/HCPCS: 73030; 99283; J9999

== ENCOUNTER 2025-04-06 11:52 | Outpatient (CLI) | payer OTHER, SELFPAY ==
--- NOTE | 2025-04-06 11:56 | XR_ITS ---
WS: [id number] XR hand RT min 3V* [id number] REASON FOR EXAM: trauma hand/suspect 2nd metacarpal frx FINDINGS: Minimally comminuted minimally displaced oblique fractures through the mid shaft of the fourth metacarpal. No significant angulation at the fracture site. XR/XR hand RT min 3V* [id number] IMPRESSION: Fourth metacarpal fracture as above.
== END 2025-04-06 11:53 | disposition home or self-care (01) ==
LOC: RAD 11:53
PROVIDERS: PCP Family Medicine; Visit Provider Family Medicine
DX: S62.309A Unspecified fracture of unspecified metacarpal bone, initial encounter for closed fracture (principal); X58.XXXA Exposure to other specified factors, initial encounter; I10 Essential (primary) hypertension; Z91.014 Allergy to mammalian meats
CPT/HCPCS: 73130; 80053; 85025; 86003; 86008

== ENCOUNTER → 2025-04-13 14:46 | Outpatient (BNVA) | payer OTHER, SELFPAY | PROVIDERS: PCP Family Medicine; Visit Provider Physician Assistant | DX: S62.324A Displaced fracture of shaft of fourth metacarpal bone, right hand, initial encounter for closed fracture (principal); V18.0XXA Pedal cycle driver injured in noncollision transport accident in nontraffic accident, initial encounter | CPT/HCPCS: 73130 ==

== ENCOUNTER 2025-04-18 10:13 | Day surgery (SDC) | payer OTHER, SELFPAY ==
[2025-04-18] VITALS (14 sets, daily range): BP systolic 94–156; BP diastolic 57–100; PULSE 60–77; RESP 10–18; TEMP 35.7–36.3; O2SAT 92–98; BMI 34.4
--- NOTE | 2025-04-18 | XR_ITS ---
WS: [id number] Right hand, C-arm fluoroscopy views, 04/18/2025 Clinical Data: OR PICS Comparison: Right hand, 04/13/2025 Findings: Dr. Crane reduced the right fourth metacarpal fracture. XR/XR hand RT min 3V* [id number] Impression: Reduction of right fourth metacarpal fracture.
[2025-04-18] MEDS: acetaminophen 1,000 MG/100 ML PIGGYBACK 400 MG IV (11:20)
--- NOTE | 2025-04-18 12:27 | W.PM.OPSUD ---
Surgery/Procedure H&P Update DATE OF PROCEDURE: April 18, 2025 DATE H&P PERFORMED: 04/13/25 H&P UPDATE INFORMATION: I have reviewed H&P completed within last 30 days, I have examined patient prior to procedure and No changes to prior documentation PREOP DIAGNOSIS: Right fourth metacarpal fracture PRIMARY INDICATION FOR PROCEDURE: Right fourth metacarpal fracture significant shortening with subtle malrotation PLANNED PROCEDURE: Operation Date: 04/18/25 12:00 Proposed Procedures p RIGHT FOURTH ORIF Metacarpal(Right) - Ryland Crane DO
--- NOTE | 2025-04-18 12:55 | ANES.PREANE2 ---
Pre-Anesthetic Assessment Height/Weight: Height 6 ft 2 in Weight 268 lb O2 Del Method Room Air 04/18/25 10:52 Preop Diagnosis: Right fourth metacarpal fracture Operation Date: 04/18/25 12:00 Proposed Procedures p RIGHT FOURTH ORIF Metacarpal(Right) - Ryland Royce, DO Was Beta Sonu taken within 24 hours: N/A Was Clonidine taken within 24 hours: N/A Last intake: Intake Last Liquid Date 04/17/25 Last Liquid Time 21:00 Last Solid Date 04/17/25 Last Solid Time 20:00 Social No alcohol and No tobacco Exam alert, oriented x 3, clear to auscultation bilaterally and regular rate & rhythm Airway Submandibular: within normal limits Cervical ROM: within normal limits Mallampati: Class III Dentition: full Anesthetic Plan ASA status: 3 Anesthesia: General Other: No prior issues with anesthesia NPO since yesterday evening History of hypertension on lisinopril Patient states that he woke up this morning with mild swelling in bilateral lower extremities and he is not sure why. Patient does have nonpitting edema in both lower extremities. Denies any chest pain or shortness of breath. Labs reviewed from 04/06/2025 acceptable for procedure EKG showing sinus rhythm Echo from 2023 showing EF of 67% with no regional wall motion abnormalities METs greater than 4 Plan for general anesthesia with local via surgeon Medications/Allergies Home Medications ?Medication ?Instructions ?Recorded ?Confirmed ?Last Taken ?Type naproxen 500 mg tablet (Naprosyn) 500 mg PO BID PRN pain #20 tabs 04/03/25 04/18/25 04/08/25 Rx lisinopril 20 mg tablet 20 mg PO BID 04/15/25 04/18/25 04/17/25 History hydrocodone 5 mg-acetaminophen 325 1 tab PO Q6H PRN pain 5 days #20 04/18/25 Unknown Rx mg tablet tabs Allergies Allergy/AdvReac Type Severity Reaction Status Date / Time alpha gal Allergy ADR-Diarrhe Uncoded 04/18/25 10:44 a Current Medications Generic Name Dose Route Start Last Admin Trade Name Freq PRN Reason Stop Dose Admin Sodium Chloride 1,000 mls @ 30 mls/hr 04/18/25 10:30 04/18/25 11:23 Sodium Chloride 0.9% IV 04/19/25 10:29 30 mls/hr .Q24H YULIA Administration PFSH Anesthesia Medical History History of umbilical hernia Hypercholesterolemia Hypertension Surgical History History of sinus surgery Social History Smoking and tobacco/nicotine status: never used tobacco/nicotine Alcohol intake: never Substance/Drug Use: never Data Anesthesia Cardiac Studies: Echocardiogram 06/17/24 Sestamibi Stress Test (Cardiology) 06/17/24
[2025-04-18] MEDS: ceFAZolin 3,000 MG in sodium chloride 0.9% (plus) 100 ML 200 MG IV (12:56)
[2025-04-18] MEDS: ROPivacaine 0.5% SDV 30 mL 150 MG INJECTION (13:35)
--- NOTE | 2025-04-18 14:31 | P.BOP_ITS ---
Date of Procedure: 04/18/2025 Surgeon: Ryland Crane DO Silverware Cleaner(s): Hilario Crane PA-C Procedure(s) performed: Right fourth metacarpal open reduction internal fixation Findings of the procedure(s): Patient underwent procedure as planned without issues or complications patient was found to have a simple oblique fracture pattern There was no significant propagation proximally as result after achieving reduction this had plenty of room for an intramedullary screw as a result I ended up proceeding with an intramedullary screw fixation. This had excellent fixation and was stable through range of motion. Patient placed in ulnar gutter splint taken recovery stable condition Estimated blood loss: 3 mL Specimen(s) removed: None Post-operative diagnosis: Right fourth metacarpal fracture shortened and malrotated
--- NOTE | 2025-04-18 14:33 | P.OP_ITS ---
Operative Report Date of procedure: April 18, 2025 Surgeon: Ryland Crane DO Lead Vulcanizing Operator: Hilario Crane PA-C: PA was necessary for assistance in this case with hand positioning to execute the procedure, retraction and protection of neurovascular structures, as well as assistance with maintaining traction assistance with reduction also to assist with reduction well fracture fixation, PA assisted with instrumentation for fixation as well as to assist with wound closure and dressing application. Procedure: Preop Diagnosis ?Displaced right Fourth?metacarpal?shaft fracture? Post-op diagnosis: Same Post-op findings: See procedure note Procedure done: Right Fourth?metacarpal?open reduction internal fixation with intramedullary headless compression screw Implants: Arthrex 2.5 mm fully threaded headless compression screw-50mm Specimens removed/disposition: None Estimated blood loss (mL): 3 cc Tourniquet time 52 minutes IV fluids: See anesthesia record Complications: None Findings: See op note Brief History: pt was seen in my office and sustained a right Fourth?metacarpal?fracture, Patient has significant shortening deformity that is progressed and malrotation. Given the instability of the fracture. I detailed discussion with patient in the office about these findings and recommendations of nonoperative versus operative intervention.? Given shortening/malrotation and? Through shared decision making patient elect to proceed. Detail the risk benefits complications alternatives to surgery.? Risks include but are not limited to make it better or make it worse malunion nonunion loss of function of the hand, injury to extensor tendon mechanism, injury to nerves or vessels, infection.? Understanding these risks he elects to proceed with surgical intervention.? Consent was obtained in preoperative holding area for right fourth metacarpal open reduction internal fixation. Procedure: Patient seen the preoperative holding area.? Consent was finalized and reviewed with patient as well as family in preop holding area confirming correct patient correct site of surgery and correct surgery procedure.? Patient was then evaluated by the anesthesia department.? Taken to the OR suite and placed on the OR table with a hand table to the right upper extremity all bony prominences well-padded patient was secured to the bed.? Patient then underwent anesthesia per the anesthesia department.? Nonsterile tourniquet applied to the right upper extremity.? Right upper extremity was then prepped and draped in standard orthopedic fashion.? Final timeout performed. Right upper extremity was elevated tourniquet inflated mini C-arm was brought in to evaluate the fracture confirming right Fourth?metacarpal?shaft fracture with significant fracture displacement malrotation and shortening. I utilized fluoroscopic imaging and multiple attempts were made at closed reduction however fracture fragment still maintains significant deformity and no fracture reduction. As result at this point in time I subsequently planned to make a direct incision over the fourth metacarpal. Sharp scalpel incision was made through skin only and then switched to Littler dissection scissors protected all neurovascular structures came down over the extensor mechanism I dissected on the out the extensor mechanism and removed this over and this was held with a blunt we had direct visualization of the fracture site I sub sequently utilized sharp scalpel excision to debride off the periosteum and excise any early fracture callus. I then at this point in time it was noted patient had a spiral fracture of the shaft of the fourth metacarpal. There was no significant propagation proximally and comminution and given this some more simple fracture pattern I felt this would be amendable to an intramedullary screw once we obtained a satisfactory reduction. At this point in time I utilized a dental pick curette and rongeur to debride out any fracture callus and hematoma identified my fracture fragment is utilized my assistant kitchen manager to obtain traction as well as adjust rotation until I was able to achieve anatomic reduction. I used a reduction clamp to hold this into place I took x-rays with multiple orthogonal images confirming of being satisfactory reduction once again I originally was planning on potentially plating this however given the simple fracture pattern was able to achieve good reduction and had plenty of real estate proximally where an intramedullary screw would be a satisfactory option excellent fixation for this. As a result I proceeded with a fourth metacarpal intramedullary screw fixation. This point I inserted my guidewire from a headless compression screw at the dorsal third of the?metacarpal?head to be an appropriate line with the shaft.? Once this was advanced and confirmed appropriate starting position orthogonal views with mini C arm it was then advanced a reduction maneuver was made closed at the fracture site and the guidewire was then advanced past the fracture into the proximal fragment and then secured across the Fourth CMC joint.? Once we confirmed appropriate reduction as well as guidepin? being intramedullary we then used the cannulated drill in oscillation and overdrilled in order to avoid any excessive compression given the fracture pattern. Which was then advanced drilled just past the fracture site.? Next I selected a appropriate length screw 2.5 Arthrex headless compression fully threaded screw this was then held up to the?metacarpal?to determine that it would be appropriate length with mini C arm. Size was 50 mm, once this was confirmed this was the appropriate length I then utilized hand screwdriver and advance this which had excellent fracture site compression as well as maintenance of reduction.? Once this was advanced to appropriate depth being subchondral proximally but had significant fixation distally to maximize his stability. The guidepin was then removed.? Final x- rays AP oblique and lateral confirmed stable reduction and fixation with headless compression screw.? I then took the hand through range of motion id entify patient's tenodesis and finger cascade And good alignment.? This point in time to increase stability and create fracture compression I utilized an Arthrex 2-0 FiberWire and back through the needle around my circumferentially dissected metacarpal bone I wrapped this around twice and then tied this to perform a suture cerclage just to aid in fracture stability and maintenance of reduction. Wound bed was then thoroughly irrigated. Tourniquet deflated hemostasis was satisfactory local anesthetic was injected around the incision site. Then sutured subcutaneous tissue with 3-0 Vicryl suture in interrupted fashion.? Interrupted nylon suture for skin.??Patient's fingers were warm and well- perfused after tourniquet was let down.? Dressing applied of 4 x 4's Curlex and a ulnar gutter splint with Alfonzo wrap.? Patient was then awakened from anesthesia and taken to PACU in stable condition. Disposition: Patient be nonweightbearing right upper extremity maintain splint till follow-up. Patient will receive appropriate discharge instructions as well as pain medication.? Follow-up in 2 weeks in my office.
--- NOTE | 2025-04-18 14:51 | PM.PACU ---
PACU note Narrative: Patient is a 55-year-old male that just underwent a right fourth metacarpal ORIF. Patient transferred to PACU in stable condition. Pain is well controlled. Dressing and splint on hand is dry and in place. Patient's fingers are warm and well-perfused. Unable to do any further assessment of motor sensation due to patient still being under anesthesia. Exam: unarousable Disposition: discharged
[2025-04-18] MEDS: fentaNYL 50 mcg/mL INJ 2mL IVP ×2 (15:07→15:12)
== END 2025-04-18 16:35 | disposition home or self-care (01) ==
PROVIDERS: PCP Family Medicine; Visit Provider Student in an Organized Health Care Education/Training Program
PROC: (CPT 26615; principal; 2025-04-18 11:50)
DX: S62.324A Displaced fracture of shaft of fourth metacarpal bone, right hand, initial encounter for closed fracture (principal); V19.3XXA Pedal cyclist (driver) (passenger) injured in unspecified nontraffic accident, initial encounter; I10 Essential (primary) hypertension; E78.00 Pure hypercholesterolemia, unspecified
CPT/HCPCS: 26615; 73130; 76000; C1713; J0131; J0690; J1100; J1885; J2250; J2405; J2704; J2795; J3010; J7030; J9999

== ENCOUNTER → 2025-04-21 15:23 | Outpatient (BNVA) | payer OTHER, SELFPAY | PROVIDERS: PCP Family Medicine; Visit Provider Family Medicine | DX: I10 Essential (primary) hypertension (principal) | CPT/HCPCS: 80053 ==

== ENCOUNTER → 2025-05-04 14:21 | Outpatient (BNVA) | payer OTHER, SELFPAY | PROVIDERS: PCP Family Medicine; Visit Provider Physician Assistant | DX: Z98.890 Other specified postprocedural states (principal); S62.324D Displaced fracture of shaft of fourth metacarpal bone, right hand, subsequent encounter for fracture with routine healing; X58.XXXD Exposure to other specified factors, subsequent encounter | CPT/HCPCS: 73130 ==

== ENCOUNTER 2025-05-04 15:42 | Outpatient (CLI) | payer OTHER, SELFPAY | END 2025-05-04 15:43 | disposition home or self-care (01) | LOC: SOT 15:43 | PROVIDERS: PCP Family Medicine; Visit Provider Physician Assistant | DX: Z46.89 Encounter for fitting and adjustment of other specified devices (principal); S62.308A Unspecified fracture of other metacarpal bone, initial encounter for closed fracture; V19.3XXA Pedal cyclist (driver) (passenger) injured in unspecified nontraffic accident, initial encounter | CPT/HCPCS: 97760; L3808 ==

== ENCOUNTER → 2025-05-20 08:47 | Outpatient (BNVA) | payer OTHER, SELFPAY | PROVIDERS: PCP Family Medicine; Visit Provider Physician Assistant | DX: Z98.890 Other specified postprocedural states (principal); Z87.81 Personal history of (healed) traumatic fracture | CPT/HCPCS: 73130 ==

== ENCOUNTER 2025-06-01 14:55 | Outpatient (RCR) | payer OTHER, SELFPAY | END 2025-06-21 23:59 | disposition home or self-care (01) | LOC: SOT 14:55 | PROVIDERS: Visit Provider Physician Assistant | DX: S62.308A Unspecified fracture of other metacarpal bone, initial encounter for closed fracture (principal); X58.XXXA Exposure to other specified factors, initial encounter | CPT/HCPCS: 97022; 97110; 97140; 97165 ==

== ENCOUNTER → 2025-06-03 08:55 | Outpatient (BNVA) | payer OTHER, SELFPAY | PROVIDERS: Visit Provider Physician Assistant | DX: Z98.890 Other specified postprocedural states (principal); Z87.81 Personal history of (healed) traumatic fracture | CPT/HCPCS: 73130 ==

== ENCOUNTER 2025-06-22 05:00 | Outpatient (RCR) | payer OTHER, SELFPAY | END 2025-07-22 23:59 | disposition home or self-care (01) | LOC: SOT 05:00 | PROVIDERS: PCP Family Medicine; Visit Provider Physician Assistant | DX: S62.308A Unspecified fracture of other metacarpal bone, initial encounter for closed fracture (principal); X58.XXXA Exposure to other specified factors, initial encounter | CPT/HCPCS: 97022; 97110; 97140; L3925 ==

== ENCOUNTER → 2025-07-01 08:45 | Outpatient (BNVA) | payer OTHER, SELFPAY | PROVIDERS: PCP Family Medicine; Visit Provider Physician Assistant | DX: Z98.890 Other specified postprocedural states (principal); X58.XXXA Exposure to other specified factors, initial encounter | CPT/HCPCS: 73130 ==